=== PATIENT | male | born 1940 | race Caucasian/White ===

== ENCOUNTER 2018-12-02 07:13 | Emergency (ER) | payer OTHER, MEDICARE ==
[~2018-12-02] VITALS: Ht 175.3 cm; Wt 81.2 kg
[~2018-12-02 07:13] MED LIST: ALBU90OI INH; AMLO5 PO; ASPI81EC PO; ATEN100 PO; ATEN50 PO; ATOR40TA PO; Aspir 8181 MG PO; CALCIUM PO; CYAN1000 PO; CYAN100T2; GLIP5 PO; GUAI600T33 PO; HYDCHL25 PO; IBUP800 PO; IRON PO; ISOMON20 PO; ISOMON30 PO; LEVO750 PO; LISI10 PO; LISI20 PO; METF500 PO; METO100ER PO; NITR.4SL SL; Nitrostat0.4 MG SL; OLME20-12. PO; OXYACE5T PO; Omeprazole20 M1; SIMV40 PO; TEMA15 PO; TRAZ150T57 PO; TRAZ50 PO; TRIPLE FLEX PO; VITAMIN B 12 PO
[2018-12-02] MEDS ORDERED: IBUP800 PO (07:28)
[2018-12-02] MEDS ORDERED: ALBU90OI INH (07:28)
[2018-12-02] MEDS ORDERED: HYDCHL25 PO (07:28)
[2018-12-02] MEDS ORDERED: TAMS.4ER PO (07:28)
[2018-12-02] MEDS ORDERED: Vitamin B-121000 MCG PO (07:29)
[2018-12-02 08:08] LABS: BASOPHILS ABSOLUTE AUTO 0.02 K/mm3 (0.00-0.23); BASOPHILS PERCENT AUTO 0 % (0-2); EOSINOPHILS ABSOLUTE AUTO 0.06 K/mm3 (0.00-0.68); EOSINOPHILS PERCENT AUTO 1 % (0-6); Hematocrit 36.6 % (37.0-53.0); Hemoglobin 12.9 g/dL (13.5-17.5); IMMATURE GRAN ABSOLUTE AUTO 0.05 K/mm3 (0.00-0.10); IMMATURE GRAN PERCENT AUTO 0 % (0-1); LYMPHOCYTES ABSOLUTE AUTO 0.62 K/mm3 (0.84-5.20); LYMPHOCYTES PERCENT AUTO 5 % (21-46); MONOCYTES ABSOLUTE AUTO 0.97 K/mm3 (0.16-1.47); MONOCYTES PERCENT AUTO 8 % (4-13); Mean Corpuscular HGB 31.6 pg (26.0-34.0); Mean Corpuscular HGB Conc 35.2 g/dL (31.5-36.5); Mean Corpuscular Volume 90 fL (80-100); Mean Platelet Volume 9.9 fL (9.1-12.4); NEUTROPHILS ABSOLUTE AUTO 10.83 K/mm3 (1.96-9.15); NEUTROPHILS PERCENT AUTO 86 % (41-73); Platelet Count 172 K/mm3 (150-400); RDW Coefficient Variation 13.3 % (11.7-14.2); RDW Standard Deviation 43.6 fL (35.1-46.3); Red Blood Cell Count 4.08 M/mm3 (4.30-5.90); White Blood Cell Count 12.55 K/mm3 (4.00-11.30)
[2018-12-02 08:29] LABS: Alanine Aminotransfer (ALT/SGP 17 U/L (12-78); Albumin, Blood 3.7 g/dL (3.4-5.0); Albumin/Globulin Ratio 1.2 (0.8-1.8); Alk Phos 71 U/L (50-136); Anion Gap 8 mmol/L (6-16); Aspartate Aminotrans (AST/SGOT 12 U/L (12-37); Blood Urea Nitrogen 18 mg/dL (8-24); Bun/Creatinine Ratio 16.2 (12.0-20.0); CO2, Blood 26 mmol/L (21-32); Calcium, Blood 8.6 mg/dL (8.5-10.1); Chloride, Blood 97 mmol/L (98-108); Creatinine, Blood 1.11 mg/dL (0.60-1.20); Globulin, Blood 3.1 g/dL (2.2-4.0); Glomerular Filtration Rate >60 (60-); Glucose, Blood 107 mg/dL (70-99); Sodium, Blood 131 mmol/L (136-145); Total Protein, Blood 6.8 g/dL (6.4-8.2); Troponin I <0.015 ng/mL (0.000-0.040)
[2018-12-02] MEDS ORDERED: Norco 7.5-3251 EACH PO (10:31)
[2018-12-02] MEDS ORDERED: Bactrim Ds Tab1 EACH PO (10:31)
[2018-12-02] MEDS ORDERED: Flagyl500 MG PO (10:31)
== END 2018-12-02 10:45 | disposition home or self-care (01) ==
LOC: ER 07:13
PROVIDERS: Emergency Medicine
DX: K57.32 Diverticulitis of large intestine without perforation or abscess without bleeding (principal); I20.8 Other forms of angina pectoris; I10 Essential (primary) hypertension; Z88.0 Allergy status to penicillin; Z88.5 Allergy status to narcotic agent; Z79.899 Other long term (current) drug therapy; Z79.82 Long term (current) use of aspirin; E78.5 Hyperlipidemia, unspecified; E11.9 Type 2 diabetes mellitus without complications; Z87.891 Personal history of nicotine dependence
CPT/HCPCS: 36415; 71046; 74176; 80053; 82947; 84484; 85025; 93005; 93010; 99284-25; A9270-GY